=== PATIENT | female | born 1970 | race Caucasian/White ===

== ENCOUNTER 2017-03-28 16:37 | Emergency (ER) | payer OTHER ==
[~2017-03-28] VITALS: Ht 170.2 cm; Wt 80.8 kg
[~2017-03-28 16:37] MED LIST: DOXY100T PO; VENTAER INH; Z.0.NO CURRENT MEDS
[2017-03-28 16:58] VITALS: BP 144/94; PULSE 95; RESP 18; TEMP 98.1; O2SAT 97
--- NOTE | 2017-03-28 17:24 | PD ---
HPI Chief Complaint: Flank/Kidney Pain Time Seen by Provider: 17:04 Travel History International Travel<30 days: No Contact w/Intl Traveler<30days: No Traveled to known affect area: No History of Present Illness HPI 47yo F with no significant PMH presents to the ED with c/o right sided abdominal pain since 2am today. Said pain is intermittent and more in right side and radiates down to right lower. Sitting up makes pain better and lying down or taking deep breath makes pain worst. Denies any fever, chest pain, sob , n/v, trauma, fall, vaginal discharge, dysuria, hematuria, focal weakness or numbness. Pt said she went to urgent care and was suppose to get CT scan but pain got worst so came to ED. Did not take anything for pain at home. Denies similar pain before. PFSH Past Medical History Medical History: Denies Significant Hx Diminished Hearing: No Influenza Vaccination: No ?: Not LMP: 03/2017 Past Surgical History Gynecologic Surgery: Yes (PLACENTA RETRACTION AND REMOVAL) Social History Alcohol Use: Yes Tobacco Use: No Allergies-Medications (Allergen,Severity, Reaction): Coded Allergies: No Known Allergies (Verified Adverse Reaction, Unknown, 03/28/17) Reported Meds & Prescriptions Reported Meds & Active Scripts Active Ibuprofen 400 Mg Tab 400 Mg PO Q8H PRN Review of Systems Except as stated in HPI: all other systems reviewed are Neg Physical Exam Narrative GENERAL: 47yo F in mild distress. SKIN: Focused skin assessment warm/dry. HEAD: Atraumatic. Normocephalic. CARDIOVASCULAR: Regular rate and rhythm. No murmur appreciated. RESPIRATORY: No accessory muscle use. Clear to auscultation. Breath sounds equal bilaterally. GASTROINTESTINAL: Abdomen soft, +TTP right lower abdomen. No TTP RUQ. MUSCULOSKELETAL: No obvious deformities. No clubbing. No cyanosis. No edema. NEUROLOGICAL: Awake and alert. No obvious cranial nerve deficits. Motor grossly within normal limits. Normal speech. PSYCHIATRIC: Appropriate mood and affect; insight and judgment normal. Data Data Last Documented VS Vital Signs Date Time Temp Pulse Resp B/P (MAP) Pulse Ox O2 Delivery O2 Flow Rate FiO2 03/28/17 18:45 18 03/28/17 18:12 79 111/86 (94) 100 Room Air 03/28/17 16:58 98.1 Orders Orders Complete Blood Count With Diff (03/28/17 17:20) Comprehensive Metabolic Panel (03/28/17 17:20) Lipase (03/28/17 17:20) Prothrombin Time / Inr (Pt) (03/28/17 17:20) Act Partial Throm Time (Ptt) (03/28/17 17:20) Urinalysis - C+S If Indicated (03/28/17 17:20) Ct Abd/Pel W Iv Contrast(Rout) (03/28/17 17:20) Morphine Inj (Morphine Inj) (03/28/17 17:30) Ed Urine Pregnancytest Poc (03/28/17 17:20) Ketorolac Inj (Toradol Inj) (03/28/17 18:00) Iohexol 350 Inj (Omnipaque 350 Inj) (03/28/17 18:34) Ed Discharge Order (03/28/17 19:07) Labs Laboratory Tests Test 03/28/17 17:30 03/28/17 17:40 Urine Color YELLOW Urine Turbidity SLIGHT Urine pH 6.0 Urine Specific [place] 1.008 Urine Protein NEG mg/dL Urine Glucose (UA) NEG mg/dL Urine Ketones TRACE mg/dL Urine Occult Blood LARGE Urine Nitrite NEG Urine Bilirubin NEG Urine Leukocyte Esterase MOD Urine RBC 0-3 /hpf Urine WBC 3-5 /hpf Urine WBC Clumps FEW Urine Squamous Epithelial Cells 0-5 /hpf Microscopic Urinalysis Comment CULT NOT INDICATED White Blood Count 9.8 TH/MM3 Red Blood Count 4.96 MIL/MM3 Hemoglobin 13.9 GM/DL Hematocrit 42.4 % Mean Corpuscular Volume 85.5 FL Mean Corpuscular Hemoglobin 28.1 PG Mean Corpuscular Hemoglobin Concent 32.8 % Red Cell Distribution Width 12.0 % Platelet Count 293 TH/MM3 Mean Platelet Volume 8.8 FL Neutrophils (%) (Auto) 69.2 % Lymphocytes (%) (Auto) 23.0 % Monocytes (%) (Auto) 5.0 % Eosinophils (%) (Auto) 2.3 % Basophils (%) (Auto) 0.5 % Neutrophils # (Auto) 6.8 TH/MM3 Lymphocytes # (Auto) 2.3 TH/MM3 Monocytes # (Auto) 0.5 TH/MM3 Eosinophils # (Auto) 0.2 TH/MM3 Basophils # (Auto) 0.0 TH/MM3 CBC Comment DIFF FINAL Differential Comment Prothrombin Time 10.1 SEC Prothromb Time International Ratio 1.0 RATIO Activated Partial Thromboplast Time 25.4 SEC Blood Urea Nitrogen 14 MG/DL Creatinine 0.70 MG/DL Random Glucose 90 MG/DL Total Protein 7.7 GM/DL Albumin 3.8 GM/DL Calcium Level 8.7 MG/DL Alkaline Phosphatase 47 U/L Aspartate Amino Transf (AST/SGOT) 14 U/L Alanine Aminotransferase (ALT/SGPT) 14 U/L Total Bilirubin 0.5 MG/DL Sodium Level 138 MEQ/L Potassium Level 3.9 MEQ/L Chloride Level 105 MEQ/L Carbon Dioxide Level 25.4 MEQ/L Anion Gap 8 MEQ/L Estimat Glomerular Filtration Rate 90 ML/MIN Lipase 146 U/L [facility] Medical Decision Making Medical Screen Exam Complete: Yes Emergency Medical Condition: Yes Differential Diagnosis Nephrolithiasis vs. pyelonephritis vs. musculoskeletal pain vs. appendicitis Narrative Course 47yo F with right sided abdominal pain today. Urine negative. Labs reviewed, no leukocytosis. Lipase normal. CMP unremarkable. UA showed large blood. Moderate leukocyte. WBC 3-5. May be from menstrual period or stone that passed. CT a/p showed normal appendix. No mass, stone or hydronephrosis. Borderline splenomegaly. Very small fat containing periumbilical anterior abdominal wall hernia. IUD in place. Pt given toradol for pain. Reevaluated after toradol and pain has resolved. Tolerating PO. Return precautions given. Diagnosis Primary Impression: Abdominal pain Qualified Codes: R10.9 - Unspecified abdominal pain Patient Instructions: General Instructions Departure Forms: Tests/Procedures Additional Instructions: Please follow up with your primary care physician in 2-3 days. Return to the ED if symptoms worsen. Med/Other Pt SpecificInfo: Prescription(s) given Scripts Ibuprofen (Ibuprofen) 400 Mg Tab 400 MG PO Q8H Y for PAIN SCALE 1 TO 4, #20 TAB 0 Refills Prov: Kathy Shaw 03/28/17 Disposition: 01 DISCHARGE HOME Condition: Stable Kathy Shaw Mar 28, 2017 17:24
[2017-03-28] MEDS ORDERED: MORPHINE SULFATE 4 MG/ML INJ IV PUSH ONE (17:30)
[2017-03-28 17:47] LABS: AUTOMATED NEUTROPHIL # 6.8 TH/MM3 (1.8-7.7); BASOPHIL % 0.5 % (0.0-2.0); EOSINOPHIL # 0.2 TH/MM3 (0-0.4); EOSINOPHIL % 2.3 % (0.0-4.0); HEMATOCRIT 42.4 % (35.0-46.0); HEMOGLOBIN 13.9 GM/DL (11.6-15.3); LYMPHOCYTE # 2.3 TH/MM3 (1.0-4.8); MEAN CELL VOLUME 85.5 FL (80.0-100.0); MEAN CORPUSCULAR HEMOGLOBIN 28.1 PG (27.0-34.0); MEAN CORPUSCULAR HGB CONC 32.8 % (32.0-36.0); MEAN PLATELET VOLUME 8.8 FL (7.0-11.0); MONOCYTE # 0.5 TH/MM3 (0-0.9); NEUT % 69.2 % (16.0-70.0); PLATELET COUNT 293 TH/MM3 (150-450); RED BLOOD COUNT 4.96 MIL/MM3 (4.00-5.30); WHITE BLOOD COUNT 9.8 TH/MM3 (4.0-11.0)
[2017-03-28 17:53] LABS: BILIRUBIN, URINE NEG (NEG); BLOOD, URINE LARGE (NEG); GLUCOSE,URINE NEG (NEG); KETONE, URINE TRACE mg/dL (NEG); NITRITE,URINE NEG (NEG); URINE LEUKOCYTE ESTERASE MOD (NEG)
[2017-03-28] MEDS ORDERED: KETOROLAC TROMETHAMINE 30 MG/ML (IVP) VIAL IV PUSH ONE (18:00)
[2017-03-28 18:03] LABS: CHLORIDE 105 MEQ/L (98-107); SODIUM (NA) 138 MEQ/L (136-145)
[2017-03-28 18:06] LABS: CALCIUM 8.7 MG/DL (8.5-10.1)
[2017-03-28 18:07] LABS: ALBUMIN 3.8 GM/DL (3.4-5.0); BICARBONATE 25.4 MEQ/L (21.0-32.0); BLOOD UREA NITROGEN 14 MG/DL (7-18); GLUCOSE,RANDOM 90 MG/DL (74-106)
[2017-03-28 18:09] LABS: PROTHROMBIN TIME - PATIENT 10.1 SEC (9.8-11.6)
[2017-03-28 18:10] LABS: ALT (GPT) 14 U/L (10-53); AST (GOT) 14 U/L (15-37); GLOMERULAR FILTRATION RATE 90 ML/MIN (>89)
[2017-03-28 18:11] LABS: TOTAL BILIRUBIN ADULT 0.5 MG/DL (0.2-1.0); TOTAL PROTEIN 7.7 GM/DL (6.4-8.2)
[2017-03-28 18:12] VITALS: BP 111/86; PULSE 79; RESP 18; O2SAT 100
[2017-03-28 18:13] LABS: ALKALINE PHOSPHATASE 47 U/L (45-117)
[2017-03-28] MEDS ORDERED: IOHEXOL 350 MG/ML 10 ML VIAL (for RAD DIAG) IVCONTRAST ONE (18:34)
[2017-03-28 18:42] LABS: RBC, URINE 0-3 /hpf (0-3); SQUAMOUS EPITHELIAL CELL URINE 0-5 /hpf (0-5); URINE COLOR YELLOW (YELLW/STRAW); WHITE BLOOD CELL CLUMPS FEW
[2017-03-28 18:45] VITALS: RESP 18
--- NOTE | 2017-03-28 18:47 | RADRPT ---
EXAM DATE/TIME: 03/28/2017 18:28 [facility] COMPARISON: No previous studies available for comparison. INDICATIONS : Right sided abdominal pain. Evaluate for appendicitis. IV CONTRAST: 95 cc Omnipaque 350 (iohexol) IV ORAL CONTRAST: No oral contrast ingested. RADIATION DOSE: 12.39 CTDIvol (mGy) MEDICAL HISTORY : None SURGICAL HISTORY : IUD ENCOUNTER: Initial ACUITY: 2 days PAIN SCALE: 4/10 LOCATION: Right lower quadrant TECHNIQUE: Volumetric scanning of the abdomen and pelvis was performed. Using automated exposure control and ad justment of the mA and/or kV according to patient size, radiation dose was kept as low as reasonably achievable to obtain optimal diagnostic quality images. DICOM format image data is available electro nically for review and comparison. FINDINGS: LOWER LUNGS: The visualized lower lungs are clear. LIVER: Homogeneous density without lesion. There is no dilation of the biliary tree. No calcified gallston es. SPLEEN: Borderline enlarged measuring up to 12 cm. PANCREAS: Within normal limits. KIDNEYS: Normal in size and shape. There is no mass, stone or hydronephrosis. ADRENAL GLANDS: Within normal limits. VASCULAR: There is no aortic aneurysm. BOWEL/MESENTERY: The stomach, small bowel, and colon demonstrate no acute abnormality. Appendix is visualized and nor mal in appearance. Small to moderate amount of residual stool throughout colon. There is no free intr aperitoneal air or fluid. ABDOMINAL WALL: Very small fat containing periumbilical anterior abdominal wall hernia. RETROPERITONEUM: There is no lymphadenopathy. BLADDER: No wall thickening or mass. REPRODUCTIVE: IUD device in place. Otherwise, unremarkable for age. INGUINAL: There is no lymphadenopathy or hernia. MUSCULOSKELETAL: Within normal limits for patient age. CONCLUSION: 1. Normal appendix. 2. No acute abnormality in the pelvis. 3. Borderline splenomegaly with spleen measuring up to 12 cm. 4. Very small fat containing periumbilical anterior abdominal wall hernia. 5. IUD device in place. Tre Og MD on March 28, 2017 at 18:42 Board Certified Radiologist. This report was verified electronically.
[2017-03-28] MEDS ORDERED: IBUP1TAB5 PO (18:55)
[2017-03-28 19:30] VITALS: BP 120/85; TEMP 98.2
== END 2017-03-28 19:32 | disposition home or self-care (01) ==
LOC: PHED 16:37
DX: R10.31 Right lower quadrant pain (principal); R16.1 Splenomegaly, not elsewhere classified; K42.9 Umbilical hernia without obstruction or gangrene
CPT/HCPCS: 74177; 80053; 81001; 83690; 84703; 85025; 85610; 85730; 96374; 96375; 99284; J1885; Q9967